=== PATIENT | male | born 1960 | race American Indian/Alaskan Native ===

== ENCOUNTER 2022-08-12 12:25 | Emergency (ER) | payer SELFPAY ==
[2022-08-12 14:09] VITALS: BP 112/71
--- NOTE | 2022-08-12 14:11 | Event Note ---
ED Screening Note ED Screening Note: LEFT AXIL. ABSCESS NEEDS ROOM FOR I/D TOOK NOTHING FOR PAIN [employer] PMH NONE Vital Signs 08/12/22 14:06 Temperature 98.2 F Pulse Rate 63 Respiratory 18 Rate Blood Pressure 112/71 O2 Sat by Pulse 97 Oximetry This initial assessment/diagnostic orders/clinical plan/treatment(s) is/are subject to change based on patients health status, clinical progression and re- assessment by fellow clinical providers in the ED. Further treatment and workup at subsequent clinical providers discretion. Patient/guardian urged not to elope from the ED as their condition may be serious if not clinically assessed and managed. Initial orders include:
--- NOTE | 2022-08-12 15:51 | Emergency Department Report ---
Abscess Boil HPI - HPI Chief Complaint: Skin/Abscess/Foreign Body Stated Complaint: LT AXILLA RASH Time Seen by Provider: 08/12/22 14:56 Duration: 2 Days Location: Upper Extremity History: Yes Pain, No Fever, No Purulent Drainage, No Numbness, No Foreign Body, No Previous History, No Insect Bite HPI: 62-year-old male presenting with abscess to his left axilla x2 days. No fever chills nausea vomiting, no weakness headache dizziness, no chest pain shortness of breath, no history of skin disorder,. Home Medications: Previous Rx's Medication Instructions Recorded Last Taken Type Ibuprofen [Motrin 800 MG tab] 800 mg PO Q8HR PRN #20 tablet 08/12/22 Unknown Rx Sulfamethoxazole/Trimethoprim 1 each PO BID #20 08/12/22 Unknown Rx [Bactrim DS TAB] traMADoL [Ultram 50 MG tab] 50 mg PO Q6HR PRN #12 tablet 08/12/22 Unknown Rx ED Review of Systems ROS: Stated complaint: LT AXILLA RASH Other details as noted in HPI Constitutional: see HPI Eyes: as per HPI ENT: as per HPI Respiratory: denies: cough, orthopnea Cardiovascular: denies: chest pain, palpitations Endocrine: denies: excessive sweating, intolerance to cold, intolerance to heat Gastrointestinal: denies: abdominal pain, nausea, vomiting, diarrhea Genitourinary: denies: urgency Musculoskeletal: denies: back pain, joint swelling Skin: rash, lesions Neurological: denies: headache, weakness, numbness Psychiatric: denies: anxiety ED Past Medical Hx - Past Medical History Previous Medical History?: No - Medications Home Medications: Home Medications Medication Instructions Recorded Confirmed Last Taken Type Ibuprofen [Motrin 800 MG tab] 800 mg PO Q8HR PRN #20 tablet 08/12/22 Unknown Rx Sulfamethoxazole/Trimethoprim 1 each PO BID #20 08/12/22 Unknown Rx [Bactrim DS TAB] traMADoL [Ultram 50 MG tab] 50 mg PO Q6HR PRN #12 tablet 08/12/22 Unknown Rx ED Abscess Boil Physical Exam - Exam General: Vital signs noted. No distress. Alert and acting appropriately. Front/Back of Body, Lg (Color): 1 - 3 cm area of induration and firmness erythema tender. Size: 3 cm Exam: Yes Tenderness, Yes Surrounding Cellulites/Erythema, Yes Normal Neurologic Exam, Yes Normal Circulation, No Fluctuance, No Lymphangitis, No Crepitation, No Heart Murmur Exam: Comfortable appearing male vital signs are stable nontoxic-appearing, no abdominal tenderness, no guarding, lungs are clear bilaterally, ambulates steadily without assistance, no bony tenderness in any of his extremities. ED Course Vital Signs 08/12/22 14:06 Temperature 98.2 F Pulse Rate 63 Respiratory 18 Rate Blood Pressure 112/71 O2 Sat by Pulse 97 Oximetry Critical care attestation.: If time is entered above; I have spent that time in minutes in the direct care of this critically ill patient, excluding procedure time. ED Medical Decision Making - Medical Decision Making Cellulitis of the arm. Abscess without signs of fluctuance no indication for I&D at this time. Will discharge with antibiotics warm compress. Pain management return precautions. Patient remained stable nontoxic-appearing, afebrile, ambulating steadily with out assistance. Gone over ED findings with patient as well as plan for follow- up. Also discussed return precautions with patient, all questions and concerns addressed. Patient is stable to be discharged follow-up outpatient. Audio voice dictation device used, hence the chart might contain some dictation errors, mispronunciations, wrong spelling and wrong verbiage. ED Disposition Clinical Impression: Abscess of axilla, left, Cellulitis Disposition: HOME / SELF CARE / HOMELESS Is pt being admited?: No Does the pt Need Aspirin: No Condition: Stable Instructions: Skin Abscess Prescriptions: Sulfamethoxazole/Trimethoprim [Bactrim DS TAB] 1 each PO BID #20 Ibuprofen [Motrin 800 MG tab] 800 mg PO Q8HR PRN #20 tablet PRN Reason: Pain , Severe (7-10) traMADoL [Ultram 50 MG tab] 50 mg PO Q6HR PRN #12 tablet PRN Reason: Pain
[2022-08-12] MEDS ORDERED: ETOMIDATE 20 MG/10 ML INJ IV ONE (22:51)
[2022-08-12] MEDS ORDERED: ROCURONIUM 50 MG/5 ML INJ IV ONE (22:52)
== END 2022-08-12 16:35 | disposition home or self-care (01) ==
LOC: ED 12:25
DX: L02.412 Cutaneous abscess of left axilla (principal); L03.112 Cellulitis of left axilla; Z79.899 Other long term (current) drug therapy
CPT/HCPCS: 99282; J3490